=== PATIENT | female | born 1935 | race Caucasian/White ===

== ENCOUNTER 2022-10-14 11:17 | Outpatient (CLI) | payer MEDICARE, OTHER, SELFPAY ==
[2022-10-14 11:29] LABS: Basophils % 0.3 %; Eosinophils # 0.1 10^3/uL (0.0-0.8); Eosinophils % 1.1 %; Hematocrit 35.5 % (37.0-47.0); Lymphocytes # 1.3 10^3/uL (0.8-4.8); Lymphocytes % 20.2 %; Mean Corpuscular HGB Conc 28.2 g/dL (30.0-36.0); Mean Corpuscular Hemoglobin 27.3 pg (28.0-34.0); Mean Platelet Volume 10.1 fL (7.4-10.4); Monocytes # 0.4 10^3/uL (0.2-0.9); Monocytes % 6.4 %; Neutrophils # 4.71 10^3/uL (1.8-7.7); Neutrophils % 71.7 %; Nucleated Red Blood Cells % 0 %; Platelet Count 234 10^3/cmm (130-400); Red Blood Count 3.66 10^6/uL (4.1-5.3); Red Cell Distribution Width 13.9 % (12.1-15.1); White Blood Count 6.6 10^3/uL (4.0-10.0)
== END 2022-10-14 11:18 | disposition home or self-care (01) ==
PROVIDERS: PCP Family Medicine; Visit Provider Nurse Practitioner Family
DX: D64.9 Anemia, unspecified (principal)
CPT/HCPCS: 85025

== ENCOUNTER 2023-01-06 17:20 | Inpatient (IN) | payer MEDICARE, OTHER, SELFPAY ==
[2023-01-06 17:29] VITALS: BP 71/45; PULSE 77; RESP 17; O2SAT 98
--- NOTE | 2023-01-06 17:48 | ECG_ITS ---
[facility] Test Date: 2023-01-06 Pat Name: Yazmin Brandon Department: Room: Gender: Female Swimming Pool Attendant: : 1935 Requested By: Jens Kennedy Order Number: [id number] Parul MD: Deniz Galan M.D. Measurements Intervals [place] Rate: 76 P: 72 AL: 177 QRS: -59 QRSD: 97 T: 72 QT: 390 QTc: 439 Interpretive Statements SINUS RHYTHM LEFT ANTERIOR FASCICULAR BLOCK [QRS AXIS <= -45, QR IN I, RS IN II] POSSIBLE ANTERIOR MYOCARDIAL INFARCTION , OF INDETERMINATE AGE [30 ms Q WAVE IN V3/V4, OR R < 0.2 mV IN V4] No previous ECG available for comparison Electronically Signed On 01-07-2023 0:34:01 CDT by Deniz Galan M.D. [id number]
--- NOTE | 2023-01-06 17:48 | XRR_ITS ---
PROCEDURE INFORMATION: Exam: XR Chest Exam date and time: 01/06/2023 6:15 PM Age: 87 years old Clinical indication: Abnormal findings; Abnormal diagnostic tests; Other: Sodium; Additional info: Dyspnea/cough TECHNIQUE: Imaging protocol: Radiologic exam of the chest. Views: 1 view. COMPARISON: No relevant prior studies available. FINDINGS: Lungs: Unremarkable. No consolidation. Pleural spaces: Unremarkable. No pleural effusion. No pneumothorax. Heart/Mediastinum: Unremarkable. No cardiomegaly. Bones/joints: Unremarkable. XR/XR chest 1V portable [id number] IMPRESSION: No acute findings.
[2023-01-06] MEDS: sodium chloride 0.9% 1,000 ML 999 ML IV ×2 (18:11→19:26)
--- NOTE | 2023-01-06 18:13 | W.ED.RECABL ---
HPI - Recheck/Abnormal Lab/Rx General: Chief Complaint: Recheck/Abnormal Lab/Rx Stated Complaint: SODIUM HIGH Time Seen by Provider: 01/06/23 17:34 Source: EMS Mode of arrival: EMS Limitations: altered mental status History of Present Illness: 87-year-old female who is here from group home she has a history of severe dementia she is nonverbal per EMS group home and check blood work and she had an elevated sodium level along with potassium she does appear dehydrated here she is hypotensive patient is nonverbal here I am unable to get her to answer any questions no known fever at the group home no vomiting no diarrhea she has had decreased intake. Review of Systems General: Reports: ROS unobtainable due to mental status PFSH ED PFSH: Medical History (Updated 01/06/23 @ 19:34 by Lucas Maxwell MD) Dementia Social History (Updated 01/06/23 @ 18:13 by Lucas Maxwell MD) Substance/Drug Use: never Physical Exam Const: COMMON NORMALS: negative for patient oriented x3 GENERAL APPEARANCE: ill appearing and frail appearing HENMT: COMMON NORMALS: normocephalic and atraumatic HEAD & SCALP: normocephalic and atraumatic Eye: COMMON NORMALS: Equal, round and reactive pupils present and EOMs intact bilaterally PUPIL: Yes Equal, round and reactive pupils present Neck/C-Spine: COMMON NORMALS: full ROM and supple Chest: COMMONS NORMALS: normal inspection of the chest and normal palpation of entire chest wall Resp: COMMON NORMALS: normal respiratory effort, No retractions, No use of accessory muscles and clear to auscultation bilaterally AUSCULTATION: clear to auscultation bilaterally Cardio: COMMON NORMALS: regular rate, regular rhythm and No murmurs present (Cardio) RATE: regular rate RHYTHM: regular rhythm GI: COMMON NORMALS: Normal to inspection, nondistended, normoactive bowel sounds present, Soft to palpation, non-tender and no masses PALPATION: Yes Soft to palpation Extremity: COMMON NORMALS: normal to inspection and full ROM Neuro: COMMON NORMALS: moves all extremities; negative for patient oriented x3 Psych: COMMON NORMALS: cooperative; negative for mental status grossly normal Skin: COMMON NORMALS: no rashes or lesions noted and no wounds GENERAL SKIN EXAM: no rashes or lesions noted Course Vital Signs: Vital signs: Vital Signs Pulse Rate 84 01/06/23 19:29 Respiratory Rate 17 01/06/23 17:29 Blood Pressure 129/76 01/06/23 19:29 Pulse Oximetry 98 01/06/23 17:29 Oxygen Delivery Me thod 01/06/23 17:29 MDM - Recheck/Abnormal Lab/Rx Medical Decision Making Patient presents here with hypernatremia likely from dehydration her blood pressure here is improved with IV fluids she has no fever no signs of infection I spoke to hospitalist will admit at this time for rehydration. Lab Data 01/06/23 18:35 01/06/23 18:35 Radiology Impressions Chest X-Ray 01/06/23 17:48 IMPRESSION: No acute findings. Laboratory Results WBC 6.9 10^3/uL (4.0-10.0) 01/06/23 18:35 RBC 4.75 10^6/uL (4.1-5.3) 01/06/23 18:35 Hgb 12.2 g/dL (11.5-15.3) 01/06/23 18:35 Hct 43.8 % (37.0-47.0) 01/06/23 18:35 MCV 92.2 fl (81-99) 01/06/23 18:35 MCH 25.7 pg (28.0-34.0) L 01/06/23 18:35 MCHC 27.9 g/dL (30.0-36.0) L 01/06/23 18:35 RDW 15.7 % (12.1-15.1) H 01/06/23 18:35 Plt Count 246 10^3/cmm (130-400) 01/06/23 18:35 MPV 12.5 fL (7.4-10.4) H 01/06/23 18:35 Neut % (Auto) 55.3 % 01/06/23 18:35 Lymph % (Auto) 36.1 % 01/06/23 18:35 [place] % (Auto) 4.9 % 01/06/23 18:35 Eos % (Auto) 3.0 % 01/06/23 18:35 Baso % (Auto) 0.6 % 01/06/23 18:35 Neut # (Auto) 3.81 10^3/uL (1.8-7.7) 01/06/23 18:35 Lymph # (Auto) 2.5 10^3/uL (0.8-4.8) 01/06/23 18:35 [place] # (Auto) 0.3 10^3/uL (0.2-0.9) 01/06/23 18:35 Eos # (Auto) 0.2 10^3/uL (0.0-0.8) 01/06/23 18:35 Baso # (Auto) 0.0 10^3/uL (0.0-0.1) 01/06/23 18:35 Nucleated RBC % (auto) 0 % 01/06/23 18:35 Nucleated RBCs # 0.0 /100WBC 01/06/23 18:35 Sodium 172 mmol/L (136-145) H* 01/06/23 18:35 Potassium 5.1 mmol/L (3.5-5.1) 01/06/23 18:35 Chloride 139 mmol/L (98-107) H 01/06/23 18:35 Carbon Dioxide 22 mmol/L (22-29) 01/06/23 18:35 Anion Gap 16.1 (5-19) 01/06/23 18:35 BUN 80 mg/dL (8-23) H 01/06/23 18:35 Creatinine 1.3 mg/dL (0.5-0.9) H 01/06/23 18:35 GFR Calculation Not Reportable 01/06/23 18:35 Glucose 149 mg/dL (65-115) H 01/06/23 18:35 Calculated Osmolality 381 mOsm/kg (285-295) H 01/06/23 18:35 Lactic Acid 1.9 mmol/L (0.5-2.2) 01/06/23 18:35 Calcium 9.3 mg/dL (8.5-10.5) 01/06/23 18:35 Total Bilirubin 0.3 mg/dL (0.15-1.2) 01/06/23 18:35 AST 18 U/L (0-32) 01/06/23 18:35 ALT 18 U/L (0-33) 01/06/23 18:35 Alkaline Phosphatase 90 U/L (35-105) 01/06/23 18:35 Creatine Kinase 300 U/L (26-192) H 01/06/23 18:35 Total Protein 7.3 g/dL (6.6-8.7) 01/06/23 18:35 Albumin 4.1 g/dL (3.5-5.2) 01/06/23 18:35 Globulin 3.2 g/dL (1.3-4.6) 01/06/23 18:35 Lipase 83 U/L (13-60) H 01/06/23 18:35 EKG Data EKG 1: I personally reviewed and interpreted this EKG as follows: EKG interpretation date: 01/06/23 EKG interpretation time: 18:09 Interpretation: nsr hr [address] or t wave abnormalities qrs 97 qtc 420 Discharge Plan Discharge Patient Disposition: Admitted As Inpatient Clinical Impression: Dementia, Hypernatremia, Dehydration Coding Level of Care Code ED Clerical Investigator for Darlene Lee
[2023-01-06 18:31] VITALS: PULSE 82
[2023-01-06 18:46] VITALS: PULSE 81
[2023-01-06 19:09] LABS: Basophils % 0.6 %; Eosinophils # 0.2 10^3/uL (0.0-0.8); Hematocrit 43.8 % (37.0-47.0); Hemoglobin 12.2 g/dL (11.5-15.3); Lymphocytes # 2.5 10^3/uL (0.8-4.8); Lymphocytes % 36.1 %; Mean Corpuscular HGB Conc 27.9 g/dL (30.0-36.0); Mean Corpuscular Hemoglobin 25.7 pg (28.0-34.0); Mean Corpuscular Volume 92.2 fl (81-99); Mean Platelet Volume 12.5 fL (7.4-10.4); Monocytes # 0.3 10^3/uL (0.2-0.9); Monocytes % 4.9 %; Neutrophils # 3.81 10^3/uL (1.8-7.7); Neutrophils % 55.3 %; Nucleated Red Blood Cells % 0 %; Platelet Count 246 10^3/cmm (130-400); Red Blood Count 4.75 10^6/uL (4.1-5.3); Red Cell Distribution Width 15.7 % (12.1-15.1); White Blood Count 6.9 10^3/uL (4.0-10.0)
[2023-01-06 19:23] LABS: Alanine Aminotransferase 18 U/L (0-33); Albumin Level 4.1 g/dL (3.5-5.2); Alkaline Phosphatase 90 U/L (35-105); Anion Gap 16.1 (5-19); Aspartate Amino Transferase 18 U/L (0-32); Blood Urea Nitrogen 80 mg/dL (8-23); Calcium 9.3 mg/dL (8.5-10.5); Carbon Dioxide 22 mmol/L (22-29); Chloride 139 mmol/L (98-107); Creatine Phosphokinase 300 U/L (26-192); Globulin 3.2 g/dL (1.3-4.6); Glucose 149 mg/dL (65-115); Lipase 83 U/L (13-60); Osmolality Calculated 381 mOsm/kg (285-295); Potassium 5.1 mmol/L (3.5-5.1); Total Bilirubin 0.3 mg/dL (0.15-1.2); Total Protein 7.3 g/dL (6.6-8.7)
[2023-01-06 19:24] LABS: Lactic Sepsis W/Reflex 1.9 mmol/L (0.5-2.2)
[2023-01-06 19:25] LABS: Sodium 172 mmol/L (136-145)
[2023-01-06 19:29] VITALS: BP 129/76; PULSE 84
--- NOTE | 2023-01-06 19:34 | P.HP_ITS ---
Providers/Chief Complaint Primary Care Provider: Bladimir Camejo MD Chief Complaint: SODIUM HIGH History of Present Illness Yazmin Brandon is a 87 year old female with past medical history of dementia that is severe and she is nonverbal as per EMS custodial was brought to the hospital via EMS after she had routine blood work checked at the custodial and was noted to have an elevated sodium level of 158 along with potassium elevation. Repeat labs at the hospital showed sodium to be 172. She appeared dehydrated and was hypotensive on arrival to ER. No known report of fever vomiting diarrhea nausea at custodial. She has had decreased intake lately. No other information is available at this time. Information obtained from ER doctor and chart. Vitals on arrival to ER 71/45, saturating 98% on room air, respiratory rate 17, pulse 77. Medications/Allergies Allergies Allergy/AdvReac Type Severity Reaction Status Date / Time celecoxib [From Celebrex] Allergy Unknown Verified 01/06/23 19:55 ibuprofen [From Motrin] Allergy Unknown Verified 01/06/23 19:55 Penicillins Allergy Unknown Verified 01/06/23 19:55 lactose-reduced food Allergy Unknown Uncoded 01/06/23 19:55 PFSH Acute PFSH: Medical History (Updated 01/06/23 @ 19:52 by Janelle Avalos MD) Dementia Social History (Updated 01/06/23 @ 18:13 by Lucas Maxwell MD) Substance/Drug Use: never Vitals/I&O/Wt Last Vital Signs Pulse 84 01/06/23 19:29 Resp 17 01/06/23 17:29 BP 129/76 01/06/23 19:29 Pulse Ox 98 01/06/23 17:29 O2 Del Method 01/06/23 17:29 Physical Exam Const: OTHER: Nonverbal patient laying appears dehydrated Normal S1-S2 Abdomen soft nontender No edema lower extremities Normocephalic atraumatic, EOMI. Lungs clear to auscultation Data 01/06/23 18:35 01/06/23 18:35 Micro: Microbiology 01/06/23 18:35 Blood Culture - Preliminary Blood SPECIMEN COLLECTED 01/06/23 18:35 Blood Culture - Preliminary Blood SPECIMEN COLLECTED A&P Assessment and plan (1) Hypernatremia: (2) Dehydration: (3) KOJO (acute kidney injury): Plan #Acute hypernatremia #Dehydration #Severe dementia #Acute kidney injury most likely secondary to dehydration #Decreased oral intake #Nonverbal ?BMP check q6H - Patient received 2L NS in ER on arrival. BP better at this time - Slow correction of hypernatremia. She is non-verbal and dehydrated. Don't have previous labs, unsure duration of insult. - Start on D5W @ 60 cc/hr - KOJO should get better with fluids. CK 300, will recheck in AM. Possibly mild rhabdomyolysis. - Check BCx, UCx due to hypotension however my suspicion for infection is low at this time - CXR image reviewed by me, no infiltrate noticed. - As per discussion with ER Doc, patient is DNR/DNI. skilled nursing records also indicate that she is DNR/DNI. -skilled nursing records indicate history of dysphagia. We will keep patient n.p.o. at this time. Check speech swallow eval before ordering diet. ? Check head CT. DNR/DNI SCDS,Heparin subc BID for DVT PPX I spent 45 minutes on this encounter before, during and after the visit, examining the patient, reviewing labs, writing orders and documenting the note and discussing with nursing staff taking care of the patient. Attestations Medical Necessity Statement*: Will cross > 2 midnight stay for management of hypernatremia Diagnoses Hypernatremia E87.0 Dehydration E86.0 KOJO (acute kidney injury) N17.9
[2023-01-06 20:15] VITALS: BP 134/54; PULSE 89
--- NOTE | 2023-01-06 20:22 | PC.NURSE ---
Report called to MAGEN MARQUEZ on Med Surg at this time
[2023-01-06 20:23] LABS: Add Urine Microscopic? NO; Charge for UA Resulting for Rev
[2023-01-06 20:28] LABS: Bilirubin Urine Neg (Negative); Blood Urine Neg (Negative); Glucose Urine UA Norm (Normal); Ketones Urine 1+ (Negative); Leukocyte Esterase Urine Negative (Negative); Nitrate Urine Negative (Negative); Protein Urine Neg (Negative); Urine Appearance Clear (CLEAR); Urine Color Yellow (Yellow); Urobilinogen Urine Norm (Negative); pH Urine 5 (5-7)
[2023-01-06 21:05] VITALS: BP 120/63; PULSE 88; RESP 18; TEMP 36.6; O2SAT 96
--- NOTE | 2023-01-06 21:37 | CTR_ITS ---
PROCEDURE INFORMATION: Exam: CT Head Without Contrast Exam date and time: 01/06/2023 9:53 PM Age: 87 years old Clinical indication: Altered mental status/memory loss; Confusion or disorientation TECHNIQUE: Imaging protocol: Computed tomography of the head without contrast. Radiation optimization: All CT scans at this facility use at least one of these dose optimization techniques: automated exposure control; mA and/or kV adjustment per patient size (includes targeted exams where dose is matched to clinical indication); or iterative reconstruction. REPORTING DATA: Count of CT and Cardiac NM exams in prior 12 months: This patient has received 0 known CTs and 0 known cardiac nuclear medicine studies in the 12 months prior to the current study. COMPARISON: No relevant prior studies available. RADIATION DOSE METRICS: Total DLP (mGy-cm): 909.58 FINDINGS: Brain: No hemorrhage. No edema. Moderate diffuse cerebral atrophy. 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 No mass effect. Cerebral ventricles: No ventriculomegaly. Paranasal sinuses: Visualized sinuses are unremarkable. No fluid levels. Mastoid air cells: Right mastoid effusion. The left mastoid air cells are well pneumatized. Bones/joints: Unremarkable. No acute fracture. Soft tissues: Unremarkable. CT/CT head wo con* [id number] IMPRESSION: 1. No acute intracranial abnormality. 2. Right mastoid effusion.
[2023-01-06] MEDS: dextrose 5% 1,000 ML 60 ML IV (21:39)
[2023-01-06] MEDS: heparin 5,000 unit/mL INJ 1 mL 5000 UNIT SUBCUT (21:39)
--- NOTE | 2023-01-06 22:09 | PC.NURSE ---
Patient is nonverbal, arrousable to light pain stimuli. According to long-term records patient has a history of dysphasia, patient has been made npo at this time and will have a speech eval ordered. Aspiration precautions have been initiated.
[2023-01-06 22:24] LABS: Procalcitonin 0.08 ng/mL (0-0.5)
[2023-01-06 22:51] LABS: Blood Urea Nitrogen 73 mg/dL (8-23); Calcium 8.5 mg/dL (8.5-10.5); Carbon Dioxide 20 mmol/L (22-29); Glucose 132 mg/dL (65-115); Osmolality Calculated 377 mOsm/kg (285-295); Potassium 4.6 mmol/L (3.5-5.1); Thyroid Stimulating Hormone 2.28 uIU/mL (0.27-4.20)
[2023-01-06 23:36] LABS: Sodium 172 mmol/L (136-145)
[2023-01-07] VITALS (8 sets, daily range): BP systolic 106–130; BP diastolic 58–77; PULSE 62–98; RESP 14–17; TEMP 36.4–37.2; O2SAT 95–97
[2023-01-07 00:01] LABS: Anion Gap 13.6 (5-19)
[2023-01-07 03:37] LABS: Basophils % 0.6 %; Eosinophils # 0.2 10^3/uL (0.0-0.8); Eosinophils % 4.6 %; Hemoglobin 9.9 g/dL (11.5-15.3); Lymphocytes # 1.8 10^3/uL (0.8-4.8); Lymphocytes % 34.2 %; Mean Corpuscular HGB Conc 27.5 g/dL (30.0-36.0); Mean Corpuscular Hemoglobin 25.2 pg (28.0-34.0); Mean Corpuscular Volume 91.6 fl (81-99); Mean Platelet Volume 12.1 fL (7.4-10.4); Monocytes # 0.3 10^3/uL (0.2-0.9); Monocytes % 5.2 %; Neutrophils # 2.87 10^3/uL (1.8-7.7); Neutrophils % 55.2 %; Nucleated Red Blood Cells % 0 %; Platelet Count 194 10^3/cmm (130-400); Red Blood Count 3.93 10^6/uL (4.1-5.3); Red Cell Distribution Width 15.6 % (12.1-15.1); White Blood Count 5.2 10^3/uL (4.0-10.0)
[2023-01-07 04:03] LABS: Blood Urea Nitrogen 61 mg/dL (8-23); Calcium 8.4 mg/dL (8.5-10.5); Carbon Dioxide 22 mmol/L (22-29); Glucose 163 mg/dL (65-115); Osmolality Calculated 369 mOsm/kg (285-295); Potassium 4.2 mmol/L (3.5-5.1)
[2023-01-07 04:05] LABS: Creatine Phosphokinase 298 U/L (26-192)
[2023-01-07 04:16] LABS: Anion Gap 10.2 (5-19); Chloride > 141 mmol/L (98-107); Sodium 169 mmol/L (136-145)
[2023-01-07] MEDS: heparin 5,000 unit/mL INJ 1 mL 5000 UNIT SUBCUT ×2 (08:04→19:45)
--- NOTE | 2023-01-07 09:07 | PC.PHAR ---
pt is from [facility]
--- NOTE | 2023-01-07 09:40 | PC.NURSE ---
Patient is unable to to answer questions
[2023-01-07 11:13] LABS: Blood Urea Nitrogen 53 mg/dL (8-23); Calcium 8.3 mg/dL (8.5-10.5); Carbon Dioxide 19 mmol/L (22-29); Glucose 154 mg/dL (65-115); Osmolality Calculated 363 mOsm/kg (285-295)
[2023-01-07 11:20] LABS: Chloride 140 mmol/L (98-107)
[2023-01-07 11:22] LABS: Anion Gap 13.2 (5-19); Potassium 4.2 mmol/L (3.5-5.1)
[2023-01-07 11:25] LABS: Sodium 168 mmol/L (136-145)
[2023-01-07] MEDS: dextrose 5% 1,000 ML 125 ML IV ×2 (13:42→21:43)
--- NOTE | 2023-01-07 14:22 | PM.PN ---
Subjective Subjective: Patient was seen this morning, very poor verbal response. Labs and vitals have been reviewed. Medications: Medication Review Details: Generic Name Dose Route Start Last Admin Trade Name Suleman PRN Reason Stop Dose Admin Heparin Sodium (Po rcine) 5,000 unit 01/06/23 19:45 01/07/23 08:04 Heparin 5,000 Un it/Ml Inj 1 Ml SUBCUT 5,000 unit Q12H JOAQUIN Administration Dextrose 1,000 mls @ 125 m ls/hr 01/07/23 13:30 01/07/23 13:42 D5w IV 125 mls/hr .Q8H JOAQUIN Administration Vitals/I&O/Wt Last Vital Signs Temp 98.4 F 01/07/23 12:00 Pulse 78 01/07/23 12:00 Resp 16 01/07/23 12:00 BP 107/68 01/07/23 12:00 Pulse Ox 95 01/07/23 12:00 O2 Del Method 01/07/23 12:00 01/06/23 01/07/23 01/07/23 22:59 06:59 14:59 Intake Total 1999 / 1999 Output Total 900 / 900 Balance 1999 / 1999 -900 / 1100 Weight last 48 hrs Weight 74.389 kg Physical Exam Narrative: Patient is extremely drowsy bare minimum response. HENMT: COMMON NORMALS: normocephalic and atraumatic HEAD & SCALP: normocephalic and atraumatic Resp: COMMON NORMALS: clear to auscultation bilaterally AUSCULTATION: clear to auscultation bilaterally Cardio: COMMON NORMALS: regular rate, regular rhythm, S1 normal heart sound present, S2 normal heart sound present, No gallops present (Cardio), No murmurs present (Cardio), No rub (Cardio) and Peripheral pulses 2+ throughout RATE: regular rate RHYTHM: regular rhythm HEART SOUNDS: S1 normal heart sound present and S2 normal heart sound present PERIPHERAL PULSES: Peripheral pulses 2+ throughout GI: COMMON NORMALS: Normal to inspection, nondistended, normoactive bowel sounds present, Soft to palpation, non-tender, No hepatosplenomegaly present and no masses AUSCULTATION: Yes normoactive bowel sounds PALPATION: Yes Soft to palpation and Yes No hepatosplenomegaly present RECTAL EXAM: deferred Extremity: COMMON NORMALS: no clubbing, cyanosis or edema and no pedal edema Urinary Catheter Management: Ware: Cath Placed During This Visit: yes Reason for Continuing Indwelling Catheter: Other Urinary Catheter Date of Insertion: 01/06/23 Urinary Catheter Time of Insertion: 20:00 Data 01/07/23 03:22 01/07/23 10:45 Micro: Microbiology 01/06/23 18:35 Blood Culture - Preliminary Blood SPECIMEN COLLECTED 01/06/23 18:35 Blood Culture - Preliminary Blood SPECIMEN COLLECTED A&P Assessment and plan (1) Hypernatremia: Free water deficit: 7.6 Admission serum sodium is:172 Currently she is on D5 water at 125 cc an hour. Goal Is around 10 mEq every 24 hours. If she fails to respond appropriately, will have to place NG tube, and start with free water replacement. For now continue serum sodium monitoring every 4 hours Continue to monitor mentation (2) Dehydration: Plan as above (3) KOJO (acute kidney injury): Likely secondary to dehydration Continue IV hydration Monitor BMP Urine electrolytes Avoid nephrotoxic. Plan #Acute hypernatremia #Dehydration #Severe dementia #Acute kidney injury most likely secondary to dehydration #Decreased oral intake #Nonverbal ?BMP check q6H - Patient received 2L NS in ER on arrival. BP better at this time - Slow correction of hypernatremia. She is non-verbal and dehydrated. Don't have previous labs, unsure duration of insult. - Start on D5W @ 60 cc/hr - KOJO should get better with fluids. CK 300, will recheck in AM. Possibly mild rhabdomyolysis. - Check BCx, UCx due to hypotension however my suspicion for infection is low at this time - CXR image reviewed by me, no infiltrate noticed. - As per discussion with ER Doc, patient is DNR/DNI. [facility] also indicate that she is DNR/DNI. -penitentiary records indicate history of dysphagia. We will keep patient n.p.o. at this time. Check speech swallow eval before ordering diet. ? Check head CT. DNR/DNI SCDS,Heparin subc BID for DVT PPX I spent 45 minutes on this encounter before, during and after the visit, examining the patient, reviewing labs, writing orders and documenting the note and discussing with nursing staff taking care of the patient. Attestations Medical Necessity Statement*: Patient is to be in hospital for management of hypernatremia. Coding Level of Care Code 47115 Diagnoses Hypernatremia E87.0 Dehydration E86.0 KOJO (acute kidney injury) N17.9
--- NOTE | 2023-01-07 15:13 | PC.SLP ---
Orders received, chart reviewed. Two attempts were made to assess patient, however, she was unable to be awakened to fully participate in her swallowing assessment. Will continue to monitor and assess patient when it is appropriate.
[2023-01-07 17:05] LABS: Anion Gap 10.6 (5-19); Blood Urea Nitrogen 44 mg/dL (8-23); Calcium 8.4 mg/dL (8.5-10.5); Carbon Dioxide 22 mmol/L (22-29); Chloride 136 mmol/L (98-107); Glucose 154 mg/dL (65-115); Osmolality Calculated 354 mOsm/kg (285-295); Potassium 3.6 mmol/L (3.5-5.1)
[2023-01-07 17:07] LABS: Sodium 165 mmol/L (136-145)
[2023-01-07 19:25] LABS: Sodium 158 mmol/L (136-145)
[2023-01-07 22:44] LABS: Sodium 156 mmol/L (136-145)
[2023-01-08] VITALS (13 sets, daily range): BP systolic 121–138; BP diastolic 56–82; PULSE 60–127; RESP 15–18; TEMP 36.6–36.9; O2SAT 94–98
--- NOTE | 2023-01-08 03:00 | ECG_ITS ---
[facility] Test Date: 2023-01-08 Pat Name: Yazmin Brandon Department: Room: 253 Gender: Female Head Of Data: RISA: 1935 Requested By: Janelle Avalos Order Number: [id number] Parul MD: Alexandre Beal M.D. Measurements Intervals [place] Rate: 62 P: 0 FL: 0 QRS: -38 QRSD: 106 T: 54 QT: 437 QTc: 447 Interpretive Statements ATRIAL FIBRILLATION LEFT AXIS DEVIATION [QRS AXIS < -30] MINIMAL ST DEPRESSION [0.025+ mV ST DEPRESSION] Compared to ECG 01/06/2023 18:09:50 Left-axis deviation now present ST (T wave) deviation now present Sinus rhythm no longer present Left anterior fascicular block no longer present Myocardial infarct finding no longer present Electronically Signed On 01-08-2023 18:43:36 CDT by Alexandre Beal M.D. [id number]
[2023-01-08 03:45] LABS: Basophils % 0.2 %; Eosinophils # 0.2 10^3/uL (0.0-0.8); Eosinophils % 3.5 %; Hematocrit 32.6 % (37.0-47.0); Hemoglobin 9.5 g/dL (11.5-15.3); Lymphocytes # 1.6 10^3/uL (0.8-4.8); Lymphocytes % 33.9 %; Mean Corpuscular HGB Conc 29.1 g/dL (30.0-36.0); Mean Corpuscular Hemoglobin 25.6 pg (28.0-34.0); Mean Corpuscular Volume 87.9 fl (81-99); Mean Platelet Volume 12.4 fL (7.4-10.4); Monocytes # 0.2 10^3/uL (0.2-0.9); Monocytes % 4.8 %; Neutrophils # 2.64 10^3/uL (1.8-7.7); Neutrophils % 57.4 %; Nucleated Red Blood Cells % 0 %; Platelet Count 163 10^3/cmm (130-400); Red Blood Count 3.71 10^6/uL (4.1-5.3); Red Cell Distribution Width 14.5 % (12.1-15.1); White Blood Count 4.6 10^3/uL (4.0-10.0)
[2023-01-08 05:07] LABS: Anion Gap 13.3 (5-19); Blood Urea Nitrogen 37 mg/dL (8-23); Calcium 8.1 mg/dL (8.5-10.5); Carbon Dioxide 22 mmol/L (22-29); Chloride 127 mmol/L (98-107); Glucose 152 mg/dL (65-115); Osmolality Calculated 340 mOsm/kg (285-295); Potassium 3.3 mmol/L (3.5-5.1); Sodium 159 mmol/L (136-145)
[2023-01-08] MEDS: lidocaine 1% 5 ML in potassium chloride premix 100 ML 52.5 ML IV (06:20)
[2023-01-08] MEDS: heparin 5,000 unit/mL INJ 1 mL 5000 UNIT SUBCUT ×2 (06:46→20:11)
[2023-01-08 07:19] LABS: Sodium 154 mmol/L (136-145)
--- NOTE | 2023-01-08 16:57 | PM.PN ---
Subjective Subjective: Patient was seen this morning, hypernatremia is improving. Patient has very poor verbal response. Current plan is to continue with D5w, continue to monitor serum sodium. Medications: Medication Review Details: Generic Name Dose Route Start Last Admin Trade Name Suleman PRN Reason Stop Dose Admin Heparin Sodium (Po rcine) 5,000 unit 01/06/23 19:45 01/08/23 06:46 Heparin 5,000 Un it/Ml Inj 1 Ml SUBCUT 5,000 unit Q12H JOAQUIN Administration Dextrose 1,000 mls @ 50 ml s/hr 01/07/23 13:30 01/08/23 11:11 D5w IV 50 mls/hr .Q20H JOAQUIN Infusion Vitals/I&O/Wt Last Vital Signs Temp 98.3 F 01/08/23 15:35 Pulse 76 01/08/23 15:35 Resp 18 01/08/23 15:35 BP 122/74 01/08/23 15:35 Pulse Ox 98 01/08/23 15:35 O2 Del Method 01/08/23 15:35 01/08/23 01/08/23 01/08/23 06:59 14:59 22:59 Intake Total 206.25 / 2306.25 935.833 / 935.833 Output Total 300 / 1300 Balance -93.75 / 1006.25 935.833 / 935.833 Weight last 48 hrs Weight 74.389 kg Physical Exam Narrative: Patient is extremely drowsy bare minimum response. HENMT: COMMON NORMALS: normocephalic and atraumatic HEAD & SCALP: normocephalic and atraumatic Resp: COMMON NORMALS: clear to auscultation bilaterally AUSCULTATION: clear to auscultation bilaterally Cardio: COMMON NORMALS: regular rate, regular rhythm, S1 normal heart sound present, S2 normal heart sound present, No gallops present (Cardio), No murmurs present (Cardio), No rub (Cardio) and Peripheral pulses 2+ throughout RATE: regular rate RHYTHM: regular rhythm HEART SOUNDS: S1 normal heart sound present and S2 normal heart sound present PERIPHERAL PULSES: Peripheral pulses 2+ throughout GI: COMMON NORMALS: Normal to inspection, nondistended, normoactive bowel sounds present, Soft to palpation, non-tender, No hepatosplenomegaly present and no masses AUSCULTATION: Yes normoactive bowel sounds PALPATION: Yes Soft to palpation and Yes No hepatosplenomegaly present RECTAL EXAM: deferred Extremity: COMMON NORMALS: no clubbing, cyanosis or edema and no pedal edema Urinary Catheter Management: Ware: Cath Placed During This Visit: yes Reason for Continuing Indwelling Catheter: Accurate Measurement of Urinary Output in Critically Ill Patients Urinary Catheter Date of Insertion: 01/06/23 Urinary Catheter Time of Insertion: 20:00 Data 01/08/23 02:32 01/08/23 06:45 Micro: Microbiology 01/06/23 18:35 Blood Culture - Preliminary Blood NEGATIVE TO DATE 01/06/23 18:35 Blood Culture - Preliminary Blood NEGATIVE TO DATE A&P Assessment and plan (1) Hypernatremia: Free water deficit: 7.6 Admission serum sodium is:172 Currently she is on D5 water at 50 cc an hour. Goal Is around 10 mEq every 24 hours. If she fails to respond appropriately, will have to place NG tube, and start with free water replacement. For now continue serum sodium monitoring every 4 hours Continue to monitor mentation (2) Dehydration: Plan as above (3) KOJO (acute kidney injury): Likely secondary to dehydration Continue IV hydration Monitor BMP Urine electrolytes Avoid nephrotoxic. Plan #Acute hypernatremia #Dehydration #Severe dementia #Acute kidney injury most likely secondary to dehydration #Decreased oral intake #Nonverbal ?BMP check q6H - Patient received 2L NS in ER on arrival. BP better at this time - Slow correction of hypernatremia. She is non-verbal and dehydrated. Don't have previous labs, unsure duration of insult. - Start on D5W @ 60 cc/hr - KOJO should get better with fluids. CK 300, will recheck in AM. Possibly mild rhabdomyolysis. - Check BCx, UCx due to hypotension however my suspicion for infection is low at this time - CXR image reviewed by me, no infiltrate noticed. - As per discussion with ER Doc, patient is DNR/DNI. [facility] records also indicate that she is DNR/DNI. -[facility] records indicate history of dysphagia. We will keep patient n.p.o. at this time. Check speech swallow eval before ordering diet. ? Check head CT. DNR/DNI SCDS,Heparin subc BID for DVT PPX I spent 45 minutes on this encounter before, during and after the visit, examining the patient, reviewing labs, writing orders and documenting the note and discussing with nursing staff taking care of the patient. Attestations Medical Necessity Statement*: Needs to be in hospital for management of hypernatremia Coding Level of Care Code 03321 Diagnoses Hypernatremia E87.0 Dehydration E86.0 KOJO (acute kidney injury) N17.9
[2023-01-08] MEDS: dextrose 5% 1,000 ML 50 ML IV (17:15)
[2023-01-08 21:44] LABS: Sodium 152 mmol/L (136-145)
[2023-01-09] VITALS (11 sets, daily range): BP systolic 120–144; BP diastolic 72–85; PULSE 62–84; RESP 14–18; TEMP 36.6–37.3; O2SAT 94–98
[2023-01-09 04:38] LABS: Basophils % 0.4 %; Eosinophils # 0.1 10^3/uL (0.0-0.8); Eosinophils % 2.3 %; Hematocrit 29.7 % (37.0-47.0); Lymphocytes # 1.4 10^3/uL (0.8-4.8); Lymphocytes % 28.5 %; Mean Corpuscular HGB Conc 30.3 g/dL (30.0-36.0); Mean Corpuscular Hemoglobin 26.3 pg (28.0-34.0); Mean Corpuscular Volume 86.8 fl (81-99); Mean Platelet Volume 12.1 fL (7.4-10.4); Monocytes # 0.3 10^3/uL (0.2-0.9); Monocytes % 5.3 %; Neutrophils # 3.08 10^3/uL (1.8-7.7); Neutrophils % 63.3 %; Nucleated Red Blood Cells % 0 %; Platelet Count 137 10^3/cmm (130-400); Red Blood Count 3.42 10^6/uL (4.1-5.3); Red Cell Distribution Width 14.5 % (12.1-15.1); White Blood Count 4.9 10^3/uL (4.0-10.0)
[2023-01-09 04:55] LABS: Anion Gap 10.7 (5-19); Blood Urea Nitrogen 30 mg/dL (8-23); Calcium 8.2 mg/dL (8.5-10.5); Carbon Dioxide 22 mmol/L (22-29); Chloride 125 mmol/L (98-107); Glucose 146 mg/dL (65-115); Osmolality Calculated 327 mOsm/kg (285-295); Potassium 3.7 mmol/L (3.5-5.1); Sodium 154 mmol/L (136-145)
[2023-01-09] MEDS: dextrose 5% 1,000 ML 50 ML IV ×2 (06:02→21:25)
[2023-01-09] MEDS: heparin 5,000 unit/mL INJ 1 mL 5000 UNIT SUBCUT ×2 (07:57→21:25)
--- NOTE | 2023-01-09 11:12 | P.PN_ITS ---
Subjective Subjective: No acute events,slightly more responsive,hypernatremia is correcting. Medications: Medication Review Details: Generic Name Dose Route Start Last Admin Trade Name Suleman PRN Reason Stop Dose Admin Heparin Sodium (Po rcine) 5,000 unit 01/06/23 19:45 01/09/23 07:57 Heparin 5,000 Un it/Ml Inj 1 Ml SUBCUT 5,000 unit Q12H JOAQUIN Administration Dextrose 1,000 mls @ 75 ml s/hr 01/07/23 13:30 01/09/23 06:02 D5w IV 50 mls/hr .[id number] JOAQUIN Administration Vitals/I&O/Wt Last Vital Signs Temp 98.4 F 01/09/23 07:58 Pulse 78 01/09/23 07:58 Resp 16 01/09/23 07:58 BP 120/84 01/09/23 07:58 Pulse Ox 95 01/09/23 07:58 O2 Del Method 01/09/23 07:58 01/08/23 01/09/23 01/09/23 22:59 06:59 14:59 Intake Total 262.917 / 1198.750 639.167 / 1837.917 0 / 0 Output Total 400 / 400 200 / 600 Balance -137.083 / 798.750 439.167 / 1237.917 0 / 0 Physical Exam Narrative: Patient is extremely drowsy bare minimum response. HENMT: COMMON NORMALS: normocephalic and atraumatic HEAD & SCALP: normocephalic and atraumatic Resp: COMMON NORMALS: clear to auscultation bilaterally AUSCULTATION: clear to auscultation bilaterally Cardio: COMMON NORMALS: regular rate, regular rhythm, S1 normal heart sound present, S2 normal heart sound present, No gallops present (Cardio), No murmurs present (Cardio), No rub (Cardio) and Peripheral pulses 2+ throughout RATE: regular rate RHYTHM: regular rhythm HEART SOUNDS: S1 normal heart sound present and S2 normal heart sound present PERIPHERAL PULSES: Peripheral pulses 2+ throughout GI: COMMON NORMALS: Normal to inspection, nondistended, normoactive bowel sounds present, Soft to palpation, non-tender, No hepatosplenomegaly present and no masses AUSCULTATION: Yes normoactive bowel sounds PALPATION: Yes Soft to palpation and Yes No hepatosplenomegaly present RECTAL EXAM: deferred Extremity: COMMON NORMALS: no clubbing, cyanosis or edema and no pedal edema Urinary Catheter Management: Ware: Cath Placed During This Visit: yes Reason for Continuing Indwelling Catheter: Accurate Measurement of Urinary Output in Critically Ill Patients Urinary Catheter Date of Insertion: 01/06/23 Urinary Catheter Time of Insertion: 20:00 Data 01/09/23 04:23 01/09/23 04:23 A&P Assessment and plan (1) Hypernatremia: Free water deficit: 7.6 Admission serum sodium is:172 Currently she is on D5 water at 50 cc an hour. Goal Is around 10 mEq every 24 hours. If she fails to respond appropriately, will have to place NG tube, and start with free water replacement. For now continue serum sodium monitoring every 4 hours Continue to monitor mentation (2) Dehydration: Plan as above (3) KOJO (acute kidney injury): Likely secondary to dehydration Continue IV hydration Monitor BMP Urine electrolytes Avoid nephrotoxic. Plan #Acute hypernatremia #Dehydration #Severe dementia #Acute kidney injury most likely secondary to dehydration #Decreased oral intake #Nonverbal ?BMP check q6H - Patient received 2L NS in ER on arrival. BP better at this time - Slow correction of hypernatremia. She is non-verbal and dehydrated. Don't have previous labs, unsure duration of insult. - Start on D5W @ 60 cc/hr - KOJO should get better with fluids. CK 300, will recheck in AM. Possibly mild rhabdomyolysis. - Check BCx, UCx due to hypotension however my suspicion for infection is low at this time - CXR image reviewed by me, no infiltrate noticed. - As per discussion with ER Doc, patient is DNR/DNI. shelter records also indicate that she is DNR/DNI. -shelter records indicate history of dysphagia. We will keep patient n.p.o. at this time. Check speech swallow eval before ordering diet. ? Check head CT. DNR/DNI SCDS,Heparin subc BID for DVT PPX I spent 45 minutes on this encounter before, during and after the visit, examining the patient, reviewing labs, writing orders and documenting the note and discussing with nursing staff taking care of the patient. Attestations Medical Necessity Statement*: needs to be in hospital for the management of severe hypernatremia. Coding Level of Care Code 68624 Diagnoses Hypernatremia E87.0 Dehydration E86.0 KOJO (acute kidney injury) N17.9
--- NOTE | 2023-01-09 11:46 | PC.SOCIAL ---
Pg 2 IMM Explained to pt's son Darci, Pg 2 IMM. No questions voiced. Provided pt a copy. Initialed, dated, & timed a copy & placed in chart.
[2023-01-10] VITALS: BP 126/74; PULSE 64; RESP 18; TEMP 36.6; O2SAT 94
[2023-01-10 03:58] LABS: Basophils % 0.5 %; Eosinophils # 0.1 10^3/uL (0.0-0.8); Lymphocytes # 1.3 10^3/uL (0.8-4.8); Lymphocytes % 35.5 %; Mean Corpuscular Hemoglobin 26.1 pg (28.0-34.0); Mean Corpuscular Volume 84.1 fl (81-99); Mean Platelet Volume 12.9 fL (7.4-10.4); Monocytes # 0.2 10^3/uL (0.2-0.9); Monocytes % 6.2 %; Neutrophils # 2.02 10^3/uL (1.8-7.7); Neutrophils % 54.8 %; Nucleated Red Blood Cells % 0 %; Platelet Count 126 10^3/cmm (130-400); Red Blood Count 3.45 10^6/uL (4.1-5.3); Red Cell Distribution Width 13.8 % (12.1-15.1); White Blood Count 3.7 10^3/uL (4.0-10.0)
[2023-01-10 04:00] VITALS: BP 120/64; PULSE 68; RESP 16; TEMP 36.6; O2SAT 94
[2023-01-10 04:50] LABS: Anion Gap 11.2 (5-19); Blood Urea Nitrogen 20 mg/dL (8-23); Calcium 8.1 mg/dL (8.5-10.5); Carbon Dioxide 21 mmol/L (22-29); Chloride 116 mmol/L (98-107); Glucose 128 mg/dL (65-115); Osmolality Calculated 304 mOsm/kg (285-295); Potassium 3.2 mmol/L (3.5-5.1); Sodium 145 mmol/L (136-145)
[2023-01-10] MEDS: heparin 5,000 unit/mL INJ 1 mL 5000 UNIT SUBCUT (07:37)
[2023-01-10 08:00] VITALS: BP 148/61; PULSE 64; RESP 16; TEMP 37.1; O2SAT 95
[2023-01-10 10:00] VITALS: BP 167/81; PULSE 68; RESP 14; TEMP 36.8
--- NOTE | 2023-01-10 10:32 | P.DS_ITS ---
Discharge Providers Date of Admission: 01/06/23 19:33 Date of Discharge: January 10, 2023 Attending Provider at Admission: Janelle Avalos MD Attending Provider at Discharge: Shaun Pathak MD Primary Care Provider: Bladimir Camejo MD Diagnoses at Discharge Discharge Diagnosis (1) Hypernatremia: Status: Acute (2) Dehydration: Status: Acute (3) KOJO (acute kidney injury): Status: Acute Reason for Visit Reason for Visit: SODIUM HIGH Hospital Course Hospital Course ?87 year old female with past medical history of dementia that is severe and she is nonverbal as per EMS shelter was brought to the hospital via EMS after she had routine blood work checked at the shelter and was noted to have an elevated sodium level of 158 along with potassium elevation.? Repeat labs at the hospital showed sodium to be 172.? She appeared dehydrated and was hypotensive on arrival, she was admitted for the management of severe hypernatremia secondary dehydration as well as KOJO, patient was kept on D5 water serum sodium was monitored frequently, patient responded well to IV hydration, at the time of discharge serum sodium was, normalized, KOJO has resolved. Patient was at her [facility] mentation, she was discharged in stable condition to shelter. Physical Exam Narrative: Not in acute distress, minimal verbal response, possibly this is her baseline. HENMT: COMMON NORMALS: normocephalic and atraumatic HEAD & SCALP: normocephalic and atraumatic Resp: COMMON NORMALS: clear to auscultation bilaterally AUSCULTATION: clear to auscultation bilaterally Cardio: COMMON NORMALS: regular rate, regular rhythm, S1 normal heart sound present, S2 normal heart sound present, No gallops present (Cardio), No murmurs present (Cardio), No rub (Cardio) and Peripheral pulses 2+ throughout RATE: regular rate RHYTHM: regular rhythm HEART SOUNDS: S1 normal heart sound present and S2 normal heart sound present PERIPHERAL PULSES: Peripheral pulses 2+ throughout GI: COMMON NORMALS: Normal to inspection, nondistended, normoactive bowel sounds present, Soft to palpation, non-tender, No hepatosplenomegaly present and no masses AUSCULTATION: Yes normoactive bowel sounds PALPATION: Yes Soft to palpation and Yes No hepatosplenomegaly present RECTAL EXAM: deferred Extremity: COMMON NORMALS: no clubbing, cyanosis or edema and no pedal edema Urinary Catheter Management: Ware: Cath Placed During This Visit: yes Reason for Continuing Indwelling Catheter: Accurate Measurement of Urinary Out put in Critically Ill Patients Urinary Catheter Date of Insertion: 01/06/23 Urinary Catheter Time of Insertion: 20:00 Discharge Data Studies Completed and Pending Completed Studies During Hospitalization Category Date Time Status CT head wo con* [id number] Stat Cat Scan 01/06/23 21:37 Completed XR chest 1V portable [id number] Stat Exams 01/06/23 17:48 Completed Pending at discharge Category Date Time Status Blood Culture Stat Lab 01/06/23 18:35 Results Radiology Impressions Chest X-Ray 01/06/23 17:48 IMPRESSION: No acute findings. Head CT 01/06/23 21:37 IMPRESSION: 1. No acute intracranial abnormality. 2. Right mastoid effusion. Laboratory Results WBC 3.7 10^3/uL (4.0-10.0) L 01/10/23 02:49 RBC 3.45 10^6/uL (4.1-5.3) L 01/10/23 02:49 Hgb 9.0 g/dL (11.5-15.3) L 01/10/23 02:49 Hct 29.0 % (37.0-47.0) L 01/10/23 02:49 MCV 84.1 fl (81-99) 01/10/23 02:49 MCH 26.1 pg (28.0-34.0) L 01/10/23 02:49 MCHC 31.0 g/dL (30.0-36.0) 01/10/23 02:49 RDW 13.8 % (12.1-15.1) 01/10/23 02:49 Plt Count 126 10^3/cmm (130-400) L 01/10/23 02:49 MPV 12.9 fL (7.4-10.4) H 01/10/23 02:49 Neut % (Auto) 54.8 % 01/10/23 02:49 Lymph % (Auto) 35.5 % 01/10/23 02:49 [place] % (Auto) 6.2 % 01/10/23 02:49 Eos % (Auto) 3.0 % 01/10/23 02:49 Baso % (Auto) 0.5 % 01/10/23 02:49 Neut # (Auto) 2.02 10^3/uL (1.8-7.7) 01/10/23 02:49 Lymph # (Auto) 1.3 10^3/uL (0.8-4.8) 01/10/23 02:49 [place] # (Auto) 0.2 10^3/uL (0.2-0.9) 01/10/23 02:49 Eos # (Auto) 0.1 10^3/uL (0.0-0.8) 01/10/23 02:49 Baso # (Auto) 0.0 10^3/uL (0.0-0.1) 01/10/23 02:49 Nucleated RBC % (auto) 0 % 01/10/23 02:49 Nucleated RBCs # 0.0 /100WBC 01/10/23 02:49 Sodium 145 mmol/L (136-145) 01/10/23 02:49 Potassium 3.2 mmol/L (3.5-5.1) L 01/10/23 02:49 Chloride 116 mmol/L (98-107) H 01/10/23 02:49 Carbon Dioxide 21 mmol/L (22-29) L 01/10/23 02:49 Anion Gap 11.2 (5-19) 01/10/23 02:49 BUN 20 mg/dL (8-23) 01/10/23 02:49 Creatinine 0.8 mg/dL (0.5-0.9) 01/10/23 02:49 GFR Calculation Not Reportable 01/10/23 02:49 Glucose 128 mg/dL (65-115) H 01/10/23 02:49 Calculated Osmolality 304 mOsm/kg (285-295) H 01/10/23 02:49 Lactic Acid 1.9 mmol/L (0.5-2.2) 01/06/23 18:35 Calcium 8.1 mg/dL (8.5-10.5) L 01/10/23 02:49 Total Bilirubin 0.3 mg/dL (0.15-1.2) 01/06/23 18:35 AST 18 U/L (0-32) 01/06/23 18:35 ALT 18 U/L (0-33) 01/06/23 18:35 Alkaline Phosphatase 90 U/L (35-105) 01/06/23 18:35 Creatine Kinase 298 U/L (26-192) H 01/07/23 03:22 Total Protein 7.3 g/dL (6.6-8.7) 01/06/23 18:35 Albumin 4.1 g/dL (3.5-5.2) 01/06/23 18:35 Globulin 3.2 g/dL (1.3-4.6) 01/06/23 18:35 Lipase 83 U/L (13-60) H 01/06/23 18:35 Procalcitonin 0.08 ng/mL (0-0.5) 01/06/23 21:48 TSH 2.28 uIU/mL (0.27-4.20) 01/06/23 21:48 Urine Color Yellow (Yellow) 01/06/23 20:12 Urine Appearance Clear (CLEAR) 01/06/23 20:12 Urine pH 5 (5-7) 01/06/23 20:12 Ur Specific [employer] 1.020 (1.005-1.030) 01/06/23 20:12 Urine Protein Neg (Negative) 01/06/23 20:12 Urine Glucose (UA) Norm (Normal) 01/06/23 20:12 Urine Ketones 1+ (Negative) H 01/06/23 20:12 Urine Blood Neg (Negative) 01/06/23 20:12 Urine Nitrate Negative (Negative) 01/06/23 20:12 Urine Bilirubin Neg (Negative) 01/06/23 20:12 Urine Urobilinogen Norm mg/dL (Negative) 01/06/23 20:12 Ur Leukocyte Esterase Negative (Negative) 01/06/23 20:12 Vitals Last Vital Signs Temp 98.7 F 01/10/23 08:00 Pulse 64 01/10/23 08:00 Resp 16 01/10/23 08:00 BP 148/61 01/10/23 08:00 Pulse Ox 95 01/10/23 08:00 O2 Del Method 01/10/23 08:00 Discharge Plan Discharge Patient Disposition: Xfer [facility] Condition: Stable Prescriptions: Continued acetaminophen 325 mg Tablet 650 mg PO Q4H PRN (Reason: Pain) acetaminophen 650 mg Suppository 650 mg NJ Q4H PRN (Reason: Constipation) atorvastatin 20 mg tablet 20 mg PO QAM Miralax 17 gram Powder In Packet 17 g PO QAM Rx Instructions: mix in 8 ounces of water in juice metoprolol succinate 50 mg tablet extended release 24 hr 50 mg PO QAM donepezil 10 mg tablet 10 mg PO DAILY lisinopril 20 mg tablet 20 mg PO QAM Rx Instructions: hold for bp less than 100 systolic or 60 diastolic aspirin 81 mg Tablet,Delayed Release (Dr/Ec) 81 mg PO QAM potassium chloride 20 mEq tablet,ER particles/crystals 20 meq PO QAM Milk of Magnesia 400 mg/5 mL Suspension 30 ml PO DAILY PRN (Reason: Constipation) amlodipine 10 mg tablet 10 mg PO QAM bisacodyl 10 mg Suppository 10 mg NJ DAILY PRN (Reason: Constipation) ropinirole 0.5 mg tablet 0.5 mg PO BEDTIME olopatadine 0.1 % drops 1 drp ophthalmic (eye) DAILY Rx Instructions: both eyes Nitrostat 0.4 mg Tablet, Sublingual 0.4 mg SUBLINGUAL Q5M PRN (Reason: Chest Pain) Rx Instructions: do not exceed 3 doses per episode Dulcolax (bisacodyl) 5 mg Tablet,Delayed Release (Dr/Ec) 10 mg PO DAILY PRN (Reason: Constipation) food supplemt, lactose-reduced Liquid See Rx Instructions .ROUTE .COMPLEX Rx Instructions: 60ml po three times a day Discharge Orders: Discharge Order (Routine); Ordered 01/10/23 Ordered By: Shaun Pathak Referrals: [facility] [Outside] Bladimir Camejo MD [Primary Care Provider] - 1 week () Patient Instructions: Dehydration (DC), Acute Kidney Injury (DC), Hypernatremia (DC), Opioid Safety Discharge Attestations Time Spent in Discharge Care*: less than 30 min Quality Metrics Clinical Quality Measures [ No reported AMI, CVA or VTE this stay] Coding Level of Care Code Acute Code for Chg Fwd Diagnoses Hypernatremia E87.0 Dehydration E86.0 KOJO (acute kidney injury) N17.9
[2023-01-10] MEDS: potassium chloride premix 100 ML 50 MEQ IV (10:56)
[2023-01-10 11:42] LABS: SARS Covid-2 Antigen negative (Negative)
[2023-01-10 12:00] VITALS: BP 167/81; PULSE 68; RESP 14; TEMP 36.8; O2SAT 96
--- NOTE | 2023-01-10 12:53 | PC.NURSE ---
Attempted to call report to [facility] and left voicemail. lithographic general worker notified. EMS currently here to transport patient.
== END 2023-01-10 13:00 | disposition skilled nursing facility (03) | DRG 683 ==
LOC: ER 20:12 → MEDSURG 20:15
PROVIDERS: Family Medicine; Admitting Provider Internal Medicine; Emergency Provider Emergency Medicine; PCP Family Medicine; Visit Provider Internal Medicine
DX: N17.9 Acute kidney failure, unspecified (principal); E87.0 Hyperosmolality and hypernatremia; E86.0 Dehydration; F03.C0 Unspecified dementia, severe, without behavioral disturbance, psychotic disturbance, mood disturbance, and anxiety; I95.9 Hypotension, unspecified; Z79.82 Long term (current) use of aspirin; Z66 Do not resuscitate
CPT/HCPCS: 36415; 51702; 70450; 71045; 80048; 80053; 81003; 82550; 83605; 83690; 84145; 84295; 84443; 85025; 87040; 87426; 92523; 92610; 93005; 96372; 99285; J1644; J3480; J7030; J7070